=== PATIENT | female | born 1995 | race Caucasian/White ===

== ENCOUNTER 2017-05-22 12:25 | Emergency (ER) | payer MEDICAID, OTHER ==
[~2017-05-22 12:25] MED LIST: METH750T2 PO; PROC1TAB8 PO
[2017-05-22 12:26] VITALS: BP 130/68; PULSE 112; RESP 20; TEMP 99.1; O2SAT 97
[2017-05-22] MEDS ORDERED: PRENTAB75 (13:10)
--- NOTE | 2017-05-22 13:24 | PD ---
HPI Chief Complaint: Respiratory Symptoms Time Seen by Provider: 13:06 Travel History International Travel<30 days: No Contact w/Intl Traveler<30days: No Traveled to known affect area: No History of Present Illness HPI 21 year old female presents to the emergency department for evaluation of sore throat and cough since last Monday. Patient states the cough is dry and hacking in nature. She has sinus pressure and nasal congestion. Patient denies any major medical history. She is 22 weeks . This is her second . The first resulted in a live and her child is now 6 years old. He denies any abdominal pain, nausea, vomiting, vaginal discharge or bleeding, pelvic pain or cramping, fever, malaise or chills. She takes no daily medication except for her vitamin. She denies being around anybody sick. 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 Nontoxic-appearing. SKIN: Focused skin assessment warm/dry. HEAD: Normocephalic. Atraumatic.. EYES: No scleral icterus. No injection or drainage. ENT: Mucosa pink and moist. No erythema or exudates. No uvular edema. Airway patent. Nasal turbinates appear mildly hypertrophic without nasal blood, purulent drainage or septal hematoma. THROAT: Moderate bilateral tonsillar hypertrophy, No pharyngeal injection or exudates. Uvula is midline. Airway is patent. NECK: Supple, trachea midline. No JVD or lymphadenopathy. CARDIOVASCULAR: Regular rate and rhythm without murmurs, gallops, or rubs. RESPIRATORY: Breath sounds clear, equal bilaterally. No accessory muscle use. No wheezing or rhonchi noted. GASTROINTESTINAL: Abdomen soft, non-tender. MUSCULOSKELETAL: No cyanosis, or edema. BACK: Nontender without obvious deformity. No CVA tenderness. Data Data Last Documented VS Vital Signs Date Time Temp Pulse Resp B/P (MAP) Pulse Ox O2 Delivery O2 Flow Rate FiO2 05/22/17 15:32 110 18 128/79 (95) 99 05/22/17 13:08 Room Air 05/22/17 12:26 99.1 Orders Orders Group A Rapid Strep Screen (05/22/17 13:12) Heart Tones (05/22/17 13:12) Complete Blood Count With Diff (05/22/17 13:12) Basic Metabolic Panel (Bmp) (05/22/17 13:12) Iv Access Insert/Monitor (05/22/17 13:12) Heart Tones (05/22/17 13:27) Strep Culture (Group A) (05/22/17 13:40) Ed Discharge Order (05/22/17 15:04) Labs Laboratory Tests Test 05/22/17 13:40 White Blood Count 8.8 TH/MM3 Red Blood Count 3.72 MIL/MM3 Hemoglobin 12.0 GM/DL Hematocrit 35.0 % Mean Corpuscular Volume 94.1 FL Mean Corpuscular Hemoglobin 32.3 PG Mean Corpuscular Hemoglobin Concent 34.3 % Red Cell Distribution Width 12.8 % Platelet Count 239 TH/MM3 Mean Platelet Volume 10.4 FL Neutrophils (%) (Auto) 72.7 % Lymphocytes (%) (Auto) 17.0 % Monocytes (%) (Auto) 7.1 % Eosinophils (%) (Auto) 2.7 % Basophils (%) (Auto) 0.5 % Neutrophils # (Auto) 6.4 TH/MM3 Lymphocytes # (Auto) 1.5 TH/MM3 Monocytes # (Auto) 0.6 TH/MM3 Eosinophils # (Auto) 0.2 TH/MM3 Basophils # (Auto) 0.0 TH/MM3 CBC Comment DIFF FINAL Differential Comment Blood Urea Nitrogen 7 MG/DL Creatinine 0.54 MG/DL Random Glucose 71 MG/DL Calcium Level 8.7 MG/DL Sodium Level 137 MEQ/L Potassium Level 3.9 MEQ/L Chloride Level 106 MEQ/L Carbon Dioxide Level 26.1 MEQ/L Anion Gap 5 MEQ/L Estimat Glomerular Filtration Rate 141 ML/MIN MDM Medical Decision Making Medical Screen Exam Complete: Yes Emergency Medical Condition: Yes Differential Diagnosis Differential diagnoses include but not limited to pharyngitis, upper respiratory infection, bronchitis, congestion, postnasal drip Narrative Course 21-year-old female presents to emergency room for evaluation of upper respiratory symptoms. Patient is 22 weeks with her second . Patient states she has a sore throat and a nonproductive cough since last Monday. Patient denies any fever, chills, malaise, chest pain, shortness of breath, cramping, vaginal discharge, nausea. Appetite strep ordered and pending. Rapid strep negative. IV obtained and blood works in the lab to be seen in [facility] ordered and pending. Blood work shows no acute abnormality. heart tones show heart rate of 152 bpm. Patient went to be evaluated for possible pneumonia. Risks and benefits of chest x-ray were discussed. Patient preferred to defer the chest x-ray at this time. Patient states she'll return to the emergency Department with any worsening condition, fever, productive cough. Patient is discharged home at this time with instructions for supportive care strict instructions to return with any worsening condition. Patient is onboard with this plan of care and thankful for care. Diagnosis Primary Impression: Upper respiratory infection Qualified Codes: J06.9 - Acute upper respiratory infection, unspecified Referrals: Statement Processor Primary Care Physician Patient Instructions: General Instructions, Upper Respiratory Infection (ED) Additional Instructions: Please return to emergency department if your symptoms return or worsen. Follow up with your primary care provider and/or clinical cytogeneticist scientist/ob. Supportive care, get enough rest, stay hydrated, diet as tolerated. Disposition: 01 DISCHARGE HOME Condition: Stable Mague Renteria Kori PASCUAL May 22, 2017 13:24
[2017-05-22 14:00] LABS: AUTOMATED NEUTROPHIL # 6.4 TH/MM3 (1.8-7.7); BASOPHIL % 0.5 % (0.0-2.0); EOSINOPHIL # 0.2 TH/MM3 (0-0.4); EOSINOPHIL % 2.7 % (0.0-4.0); HEMO FLAGS DIFF FINAL; LYMPHOCYTE # 1.5 TH/MM3 (1.0-4.8); MEAN CELL VOLUME 94.1 FL (80.0-100.0); MEAN CORPUSCULAR HEMOGLOBIN 32.3 PG (27.0-34.0); MEAN CORPUSCULAR HGB CONC 34.3 % (32.0-36.0); MONO % 7.1 % (0.0-8.0); NEUT % 72.7 % (16.0-70.0); PLATELET COUNT 239 TH/MM3 (150-450); RED BLOOD COUNT 3.72 MIL/MM3 (4.00-5.30); RED CELL DISTRIBUTION WIDTH 12.8 % (11.6-17.2); WHITE BLOOD COUNT 8.8 TH/MM3 (4.0-11.0)
[2017-05-22 14:10] LABS: BICARBONATE 26.1 MEQ/L (21.0-32.0); POTASSIUM 3.9 MEQ/L (3.5-5.1)
[2017-05-22 15:32] VITALS: BP 128/79
== END 2017-05-22 15:42 | disposition home or self-care (01) ==
LOC: NEPC 12:25
DX: O99.512 Diseases of the respiratory system complicating pregnancy, second trimester (principal); J06.9 Acute upper respiratory infection, unspecified; Z3A.22 22 weeks gestation of pregnancy
CPT/HCPCS: 80048; 85025; 87081; 87880; 99283

== ENCOUNTER 2017-07-31 08:57 | Emergency (ER) | payer MEDICAID ==
[~2017-07-31 08:57] MED LIST changes: -METH750T2 PO; +PRENTAB75; -PROC1TAB8 PO
[2017-07-31 09:20] VITALS: BP 112/56; PULSE 79
[2017-07-31 09:21] VITALS: BP 123/67; PULSE 99
[2017-07-31 09:30] VITALS: RESP 16; TEMP 98.5
[2017-07-31 10:56] VITALS: BP 123/68; PULSE 107
[2017-07-31 10:57] VITALS: RESP 16
--- NOTE | 2017-07-31 11:03 | PD ---
HPI Chief Complaint Dizziness Date Seen: Jul 31, 2017 Travel History International Travel<30 Days: No Contact w/Intl Traveler<30Days: No Known Affected Area: No History of Present Illness HPI Ms. Byrd is a 21 y/o at 32/0 weeks gestation presenting with dizziness. She states that over the last 7 weeks she has had intermittent dizziness, blurred vision, ear ringing, and hot flashes after eating. While this does not occur each time she eats, it occurs almost every day after eating breakfast. These episodes last for approximately 45 min and resolve without intervention. Today she decided to come to the ED with her symptoms because she felt like she was going to "pass out." She has been told previously by her cultured marble products maker that she has mild hypotension and anemia. While she has started taking iron supplements, she has not increased her oral fluids for her hypotension stating she only drinks approximately "a glass or two" of water per day. She endorses good movement and denies any vaginal bleeding, vaginal discharge, loss of fluid, or dysuria. Otherwise she has no complaints and denies any fevers, chills, SOB, chest pain, NVD, ABD pain, or calf tenderness. 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 SKIN: Warm and dry. HEAD: Normocephalic and atraumatic. EYES: No scleral icterus. No injection or drainage. ENT: No nasal drainage noted. Mucous membranes pink. Airway patent. NECK: Supple, trachea midline. No JVD. CARDIOVASCULAR: Regular rate and rhythm without murmurs, gallops, or rubs. RESPIRATORY: Breath sounds equal bilaterally. No accessory muscle use. BREASTS: Bilateral exam showed no masses , no retractions, no nipple discharge. ABDOMEN/GI: Abdomen soft, non-tender, bowel sounds present, no rebound, no guarding Gravid to 32 weeks size FHT's: Category: 1 Baseline: 150s Reactive: Positive Variability: Moderate Decels: None EXTREMITIES: No cyanosis or edema. BACK: Nontender without obvious deformity. No CVA tenderness. NEUROLOGICAL: Awake and alert. Motor and sensory grossly within normal limits. Five out of 5 muscle strength in all muscle groups. Normal speech. Data Data Vital Signs Reviewed: Yes Orders Orders Vital Signs (Adult) .ON ADMISSION (07/31/17 10:18) ^ Labor Status (07/31/17 10:18) ^ Non Stress Test (07/31/17 10:18) ^ Hydration (07/31/17 10:18) Mrsa Screen (07/31/17 10:18) MDM Medical Record Reviewed: Yes Plan Ms. Byrd is a 21 y/o at 32/0 weeks gestation presenting with dizziness secondary to dehydration 1. 32 weeks gestation of -Continue routine OB care -Continue PVN -Category 1 FHT, reassuring 2. Dehydration -Patient able to tolerate oral fluids -Encouraged hydration -Orthostatic VS negative -BP: WNL thirty minutes apart -UA dipstick with trace protein and leukocyte esterase appearing concentrated; patient without UTI symptoms; consistent with dehydration -Patient's symptoms have resolved with oral fluids 3. Anemia -Patient to continue with iron supplement Discharge: Patient to be DC home with close follow up with her cultured marble products maker. SDW: Dr. Hadley Diagnosis Diagnosis: Primary Impression: 32 weeks gestation of Additional Impression: Dehydration Disposition: DISCHARGE HOME Condition: Stable Patient Instructions: General Instructions Allen Del Rio MD R2 Jul 31, 2017 11:03
== END 2017-07-31 13:16 | disposition home or self-care (01) ==
LOC: HOBED 08:57
DX: O26.893 Other specified pregnancy related conditions, third trimester (principal); E86.0 Dehydration; R42 Dizziness and giddiness; H53.8 Other visual disturbances; H93.19 Tinnitus, unspecified ear; Z3A.32 32 weeks gestation of pregnancy
CPT/HCPCS: 59025; 87641

== ENCOUNTER 2017-10-07 15:44 | Inpatient (IN) | payer MEDICAID ==
[2017-10-07] VITALS (9 sets, daily range): BP systolic 124–129; BP diastolic 75–86; PULSE 73–93; RESP 16–18; TEMP 98.9
[~2017-10-07] VITALS: Ht 172.7 cm; Wt 92.1 kg
[2017-10-07] MEDS ORDERED: LACTATED RINGER'S 1000 ML INJ 1,000 ML IV PRN (17:54)
[2017-10-07] MEDS: LACTATED RINGER'S 1000 ML INJ 1,000 ML IV SCH (17:54)
--- NOTE | 2017-10-07 17:54 | PD ---
HPI Chief Complaint Abnormal BPP Date Seen: Oct 07, 2017 Time Seen: 17:48 Travel History International Travel<30 Days: No Contact w/Intl Traveler<30Days: No Known Affected Area: No History of Present Illness HPI 22-year-old who is at 41 weeks and 5 days based on comes in from [place] due to an abnormal BPP. Patient was wanted to go home delivery when she was found to have anemia, and when she went over BPP was arranged score was 4 out of 10. She is group B strep negative and has had a previous uneventful spontaneous vaginal delivery. At this point she is declining admission for induction of labor as she desires a natural onset of labor. 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 SKIN: Warm and dry. HEAD: Normocephalic and atraumatic. EYES: No scleral icterus. No injection or drainage. ENT: No nasal drainage noted. Mucous membranes pink. Airway patent. NECK: Supple, trachea midline. No JVD. CARDIOVASCULAR: Regular rate and rhythm without murmurs, gallops, or rubs. RESPIRATORY: Breath sounds equal bilaterally. No accessory muscle use. BREASTS: Bilateral exam showed no masses , no retractions, no nipple discharge. ABDOMEN/GI: Abdomen soft, non-tender, bowel sounds present, no rebound, no guarding Gravid to [-40] weeks size Fundal Height: [-] GENITOURINARY: External Genitalia: intact and normal in appearance BUS glands: [-] Normal Cervix: [-] Posterior Dilatation: [-] 3 Effacement: [-] Station: [-] -3 Presentation: [-] Vertex Membranes: [intact or ruptured] intact Uterine Contractions: [-] None FHT's: Category: [-] 1 Baseline: [-] 140 Reactive: [-] Moderate Variability: [-] Decels: [-] Absent EXTREMITIES: No cyanosis or edema. BACK: Nontender without obvious deformity. No CVA tenderness. NEUROLOGICAL: Awake and alert. Motor and sensory grossly within normal limits. Five out of 5 muscle strength in all muscle groups. Normal speech. Data Data Vital Signs Reviewed: Yes Orders Orders Ob (2e) Additional Admit Info (10/07/17 17:46) Group B Strep: Negative MDM Medical Record Reviewed: Yes Plan 22-year-old at 40 weeks 5 days based on the best known gestational age with a 4 out of 10 on her biophysical profile. A lengthy discussion with her family and spouse regarding issues pertaining to postterm , abnormal bile physicals, and necessity for induction giving her score on the biophysical. They have elected to stay for induction of labor Diagnosis Diagnosis: Primary Impression: 41 weeks gestation of Additional Impression: H/O biophysical profile Anh Neville MD Oct 07, 2017 17:54
[2017-10-07] MEDS ORDERED: SODIUM CHLORID 0.9% 500 ML INJ 500 ML IV PRN (18:00)
[2017-10-07] MEDS ORDERED: CITRIC ACID-SODIUM CITRATE LIQ 30 ML UDC PO SCH (18:00)
[2017-10-07] MEDS ORDERED: LIDOCAINE HCL 1% 50 ML VIAL INFIL PRN (18:00)
[2017-10-07] MEDS ORDERED: DINOPROSTONE 10 MG VAG INSERT VAGINAL ONE (18:00)
[2017-10-07] MEDS ORDERED: MINERAL OIL 10 ML VIAL TOPICAL PRN (18:00)
[2017-10-07] MEDS ORDERED: LIDOCAINE HCL 1% 50 ML VIAL I-DERMAL PRN (18:00)
[2017-10-07] MEDS ORDERED: SODIUM CHLORIDE 0.9% FLUSH 10 ML FLUSH IV FLUSH PRN (18:00)
[2017-10-07] MEDS ORDERED: OXYTOCIN 30 UNITS-500ML PREMIX 500 ML IV ONE (18:00)
[2017-10-07] MEDS ORDERED: SODIUM CHLOR 0.9% 1000 ML INJ 1,000 ML IV PRN (18:14)
[2017-10-07 19:37] LABS: AUTOMATED NEUTROPHIL # 6.7 TH/MM3 (1.8-7.7); BASOPHIL % 0.3 % (0.0-2.0); EOSINOPHIL # 0.1 TH/MM3 (0-0.4); EOSINOPHIL % 1.1 % (0.0-4.0); HEMATOCRIT 33.4 % (35.0-46.0); HEMOGLOBIN 10.6 GM/DL (11.6-15.3); LYMPH % 17.5 % (9.0-44.0); LYMPHOCYTE # 1.6 TH/MM3 (1.0-4.8); MEAN CELL VOLUME 79.3 FL (80.0-100.0); MEAN CORPUSCULAR HEMOGLOBIN 25.2 PG (27.0-34.0); MEAN CORPUSCULAR HGB CONC 31.8 % (32.0-36.0); MEAN PLATELET VOLUME 10.1 FL (7.0-11.0); MONO % 5.8 % (0.0-8.0); MONOCYTE # 0.5 TH/MM3 (0-0.9); NEUT % 75.3 % (16.0-70.0); PLATELET COUNT 261 TH/MM3 (150-450); RED BLOOD COUNT 4.21 MIL/MM3 (4.00-5.30); RED CELL DISTRIBUTION WIDTH 16.9 % (11.6-17.2); WHITE BLOOD COUNT 8.9 TH/MM3 (4.0-11.0)
[2017-10-07] MEDS ORDERED: SODIUM CHLORIDE 0.9% FLUSH 10 ML FLUSH IV FLUSH SCH (21:00)
[2017-10-07] MEDS ORDERED: PREN1TAB30 (21:22)
[2017-10-07] MEDS ORDERED: UNIS25TA3 (21:22)
--- NOTE | 2017-10-07 22:50 | HHI.HP ---
History & Physical H&P HPI Chief Complaint Abnormal BPP Date Seen: Oct 07, 2017 Time Seen: 17:48 Travel History International Travel<30 Days: No Contact w/Intl Traveler<30Days: No Known Affected Area: No History of Present Illness HPI 22-year-old who is at 41 weeks and 5 days based on comes in from [place] due to an abnormal BPP. Patient was wanted to go home delivery when she was found to have anemia, and when she went over BPP was arranged score was 4 out of 10. She is group B strep negative and has had a previous uneventful spontaneous vaginal delivery. At this point she is declining admission for induction of labor as she desires a natural onset of labor. 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 SKIN: Warm and dry. HEAD: Normocephalic and atraumatic. EYES: No scleral icterus. No injection or drainage. ENT: No nasal drainage noted. Mucous membranes pink. Airway patent. NECK: Supple, trachea midline. No JVD. CARDIOVASCULAR: Regular rate and rhythm without murmurs, gallops, or rubs. RESPIRATORY: Breath sounds equal bilaterally. No accessory muscle use. BREASTS: Bilateral exam showed no masses , no retractions, no nipple discharge. ABDOMEN/GI: Abdomen soft, non-tender, bowel sounds present, no rebound, no guarding Gravid to [-40] weeks size Fundal Height: [-] GENITOURINARY: External Genitalia: intact and normal in appearance BUS glands: [-] Normal Cervix: [-] Posterior Dilatation: [-] 3 Effacement: [-] Station: [-] -3 Presentation: [-] Vertex Membranes: [intact or ruptured] intact Uterine Contractions: [-] None FHT's: Category: [-] 1 Baseline: [-] 140 Reactive: [-] Moderate Variability: [-] Decels: [-] Absent EXTREMITIES: No cyanosis or edema. BACK: Nontender without obvious deformity. No CVA tenderness. NEUROLOGICAL: Awake and alert. Motor and sensory grossly within normal limits. Five out of 5 muscle strength in all muscle groups. Normal speech. Data Data Vital Signs Reviewed: Yes Orders Orders Ob (2e) Additional Admit Info (10/07/17 17:46) Group B Strep: Negative MDM Medical Record Reviewed: Yes Plan 22-year-old at 40 weeks 5 days based on the best known gestational age with a 4 out of 10 on her biophysical profile. A lengthy discussion with her family and spouse regarding issues pertaining to postterm , abnormal bile physicals, and necessity for induction giving her score on the biophysical. They have elected to stay for induction of labor Diagnosis Diagnosis: Primary Impression: 41 weeks gestation of Additional Impression: H/O biophysical profile HPI above completed and dictated by Dr. Neville. Used for documentation with her permission. Update: 2240 S: Patient with large deceleration at approximately 2228. Patient currently asymptomatic. Prior to deceleration category 1 tracing. Cervidil removed and patient put in the L lateral position with oxygen and 1L LR bolus administered. O: GENERAL: Well-nourished, well-developed female lying in the L lateral position with non-rebreather facemask applied in NAD. SKIN: Warm and dry. No rash. EYES: No scleral icterus. No injection or drainage. PERRLA. EOMI. HENT: Normocephalic. Atraumatic. MMM. NECK: No visible JVD or lymphadenopathy. CARDIOVASCULAR: Warm and well perfused. RESPIRATORY: Normal respiratory effort. GASTROINTESTINAL: Gravid to 41 weeks. MUSCULOSKELETAL: Strength grossly WNL. BACK: Without obvious deformity. NEURO/PSYCH: Afocal. Awake, alert, and oriented x3. FHT's: Category: [-] 1 Baseline: [-] 120s Reactive: [-] Positive Variability: [-] Moderate Decels: [-] Absent, currently A/P: 1. IUP at 41 weeks -Continue routine antepartum care -Patient currently without complaint -Currently category 1 tracing, reassuring 2. Deceleration on FHT -Cervidil discontinued -Oxygen and 1L LR bolus administered with good response -Patient to start low dose Pitocin at 1-1-60 to augment labor DW: Allen Devries MD R2 Oct 07, 2017 22:50
[2017-10-07] MEDS ORDERED: OXYTOCIN 30 UNITS-500ML PREMIX 500 ML IV PRN (23:00)
[2017-10-08] VITALS (32 sets, daily range): BP systolic 102–177; BP diastolic 56–156; PULSE 66–247; RESP 13–20; TEMP 97.9–98.1
[2017-10-08] MEDS: LACTATED RINGER'S 1000 ML INJ 1,000 ML IV SCH (01:54)
[2017-10-08] MEDS ORDERED: ONDANSETRON HCL 4 MG/2 ML VIAL ONE (02:18)
[2017-10-08] MEDS ORDERED: ONDANSETRON HCL 4 MG/2 ML VIAL IV PUSH PRN (02:45)
[2017-10-08] MEDS ORDERED: fentaNYL 2MCG-BUPIV 0.125% INJ 100 ML ONE (03:34)
[2017-10-08] MEDS ORDERED: LIDOCAINE 1%/EPINEPHrine 1:100,000 SOLN 30 ML VIAL ONE (03:39)
[2017-10-08] MEDS ORDERED: NO SYSTEM NARCOTICS PRN (03:45)
[2017-10-08] MEDS ORDERED: DO NOT ADMINISTER ANTICOAGULANTS PRN (03:45)
[2017-10-08] MEDS ORDERED: fentaNYL 2MCG-BUPIV 0.125% 100 ML EPIDURAL PRN (03:45)
[2017-10-08] MEDS ORDERED: ePHEDrine/NS 25 MG/5 ML SYRINGE IV PUSH PRN (04:30)
[2017-10-08] MEDS ORDERED: FAMOTIDINE 20 MG TAB PO SCH (05:00)
--- NOTE | 2017-10-08 06:07 | HHI.PR ---
GANG [facility]ER Note Note AROM performed for Category 2 tracing, moderate variability Baseline 140 with late fhr decelerations on occasional contractions moderate meconium noted Anh Neville MD Oct 08, 2017 06:07
--- NOTE | 2017-10-08 08:10 | PD.OB.DELI ---
Weeks gestation: 41 Anesthesia: Epidural Episiotomy: None Vaginal Delivery: Normal Presentation: Occiput anterior Nuchal Cord: None Delayed cord clamping (45 sec): Yes : Female Delivery date: Oct 08, 2017 Delivery time: 07:52 One Minute : 9 Five Minute : 9 Weight: 3820 Placenta: Spontaneous delivery Laceration: 1 deg Repair: Chromic running Estimated blood loss: <200cc Additional Information Ms. Byrd is a 22 y/o G2 now P2 after an uncomplicated . Baby was delivered with thick terminal meconium. APGARs 9/9. Placenta delivered intact without abnormality. Mother and baby resting comfortably in room without complaints. SDW: Allen Devries MD R2 Oct 08, 2017 08:10
[2017-10-08] MEDS ORDERED: ONDANSETRON ODT 4 MG TAB PO PRN (08:15)
[2017-10-08] MEDS ORDERED: OXYTOCIN 30 UNITS-500ML PREMIX 500 ML IV SCH (08:15)
[2017-10-08] MEDS ORDERED: ZOLPIDEM TARTRATE 5 MG TAB PO PRN (08:15)
[2017-10-08] MEDS ORDERED: SODIUM CHLORIDE 0.9% FLUSH 10 ML FLUSH IV FLUSH PRN (08:15)
[2017-10-08] MEDS ORDERED: ACETAMINOPHEN 325 MG TAB PO PRN (08:15)
[2017-10-08] MEDS ORDERED: DOCUSATE SODIUM 50 MG/SENNA 8.6 MG TAB PO PRN (08:15)
[2017-10-08] MEDS ORDERED: WITCH HAZEL 50%/GLYCERIN 12.5% 40 PAD JAR TOPICAL PRN (08:15)
[2017-10-08] MEDS ORDERED: ALUMINUM/MAGNESIUM/SIMETH 30 ML CUP PO PRN (08:15)
[2017-10-08] MEDS ORDERED: BENZOCAINE 20% TOPICAL SPRAY 60 ML CAN TOPICAL PRN (08:15)
[2017-10-08] MEDS: FAMOTIDINE 20 MG TAB PO SCH ×2 (11:22→20:35)
[2017-10-08] MEDS ORDERED: DIPHTH/TETANUS/ACEL PERTUSSIS (BOOSTER) 0.5 ML VIAL/PFS IM ONE (16:00)
[2017-10-08] MEDS ORDERED: MEASLES, MUMPS, RUBELLA VACCINE 0.5 ML VIAL SQ ONE (16:00)
[2017-10-08] MEDS: IBUPROFEN 800 MG TAB PO PRN (17:48)
[2017-10-09] MEDS: IBUPROFEN 800 MG TAB PO PRN ×2 (03:02→14:59)
[2017-10-09 08:00] VITALS: BP 128/77; PULSE 79
[2017-10-09 08:29] VITALS: RESP 20; O2SAT 100
[2017-10-09 08:30] VITALS: TEMP 97.6
--- NOTE | 2017-10-09 08:37 | HHI.OB ---
Subjective Post Day: 1 Remarks Patient seen and examined this morning. AFVSS overnight. day #1. Patient states her pain is well controlled. Decreased lochia. Denies dysuria. No breast tenderness. She is feeding the baby via breast without reported issues. Appetite good. No nausea or vomiting. Ambulating well. Denies fevers, calf pain, shortness of breath, or cough. She otherwise has no other complaints or concerns this morning. Objective Vitals/I&O Vital Signs Date Time Temp Pulse Resp B/P (MAP) Pulse Ox O2 Delivery O2 Flow Rate FiO2 10/08/17 20:35 97.9 89 18 115/72 (86) 10/08/17 10:15 98.1 106 13 122/75 (91) 10/08/17 09:00 20 10/08/17 08:42 91 18 113/97 (102) Objective Remarks GENERAL: Well-nourished, well-developed patient. CARDIOVASCULAR: Regular rate and rhythm without murmurs, gallops, or rubs. RESPIRATORY: Breath sounds equal bilaterally. No accessory muscle use. ABDOMEN/GI: Abdomen soft, non-tender. Fundus: Firm, non-tender at umbilicus. GENITOURINARY: Light to moderate bleeding. EXTREMITIES: No cyanosis or edema, non-tender, without signs of DVT. Medications and IVs Current Medications Medications (Trade) Dose Ordered Sig/Cavlin Route Start Time Stop Time Status Last Admin Lactated Ringer's 1,000 ml @ 125 mls/hr Q8H IV 10/07/17 17:54 10/08/17 01:54 Lactated Ringer's 1,000 ml @ 3,000 mls/hr Q20M PRN IV 10/07/17 17:54 Sodium Chloride 500 ml @ 1,000 mls/hr ONCE PRN IV 10/07/17 18:00 Sodium Chloride 1,000 ml @ 100 mls/hr Q10H PRN IV 10/07/17 18:14 (Xylocaine 1% Inj (50 ml)) 0.1 ml UNSCH X1 PRN I-DERMAL 10/07/17 18:00 10/10/17 17:59 (Bicitra Liq) 30 ml BLACKJACK DEALER PO 10/07/17 18:00 10/11/17 17:59 10/08/17 01:04 (fentaNYL INJ) 50 mcg Q1H PRN IV PUSH 10/07/17 18:00 10/08/17 02:25 (fentaNYL INJ) 100 mcg Q1H PRN IV PUSH 10/07/17 18:00 (Xylocaine 1% Inj (50 ml)) 10 ml UNSCH X1 PRN INFIL 10/07/17 18:00 10/09/17 17:59 (Muri-Lube Oil) 10 ml UNSCH PRN TOPICAL 10/07/17 18:00 Oxytocin 500 ml @ 0 mls/hr TITRATE PRN IV 10/07/17 23:00 (Zofran Inj) 4 mg Q4H PRN IV PUSH 10/08/17 02:45 Fentanyl/ Bupivacaine HCl 100 ml @ 12 mls/hr TITRATE PRN EPIDURAL 10/08/17 03:45 (NS Flush) 2 ml BID IV FLUSH 10/08/17 09:00 (NS Flush) 2 ml UNSCH PRN IV FLUSH 10/08/17 08:15 (Tylenol) 650 mg Q4H PRN PO 10/08/17 08:15 (Motrin) 800 mg Q8H PRN PO 10/08/17 08:15 10/09/17 03:02 (Americaine 20% Top Spr) 1 spray Q4H PRN TOPICAL 10/08/17 08:15 (Tucks Pads) 1 applic QID PRN TOPICAL 10/08/17 08:15 (Paige-Colace) 2 tab Q12H PRN PO 10/08/17 08:15 (Ambien) 5 mg HS PRN PO 10/08/17 08:15 (Mag-Al Plus Susp Liq) 15 ml Q8H PRN PO 10/08/17 08:15 (Zofran Odt) 4 mg Q6H PRN PO 10/08/17 08:15 (Pepcid) 20 mg BID PO 10/08/17 09:45 10/08/17 20:35 Assessment/Plan Problem List: (1) care following vaginal delivery ICD Codes: Z39.2 - Encounter for routine follow-up Assessment and Plan 22 year old now PPD#1. 1. Care - AFVSS - Encouraged OOB, as tolerated - Motrin prn pain - Advised pelvic rest x 6 weeks - - Contraception: Discussed with patient this AM, patient states father will be getting a vasectomy - Will f/u with OB provider in [address] Molina Discharge Planning Anticipate discharge today or tomorrow pending stable clinical course David Sanches MD R2 Oct 09, 2017 08:36
[2017-10-09 20:01] VITALS: BP 115/66; PULSE 91; RESP 18; TEMP 97.9
[2017-10-09] MEDS: SODIUM CHLORIDE 0.9% FLUSH 10 ML FLUSH IV FLUSH SCH (21:00)
[2017-10-09] MEDS: FAMOTIDINE 20 MG TAB PO SCH (21:01)
[2017-10-10 07:50] VITALS: BP 140/85; PULSE 90; RESP 20; TEMP 98.1
[2017-10-10 07:55] VITALS: BP 127/79; PULSE 83
--- NOTE | 2017-10-10 08:07 | HHI.OB ---
Subjective Post Day: 2 Remarks Patient seen and examined this morning. AFVSS overnight. day #2. Patient states her pain is minimal. Decreased lochia. Denies dysuria. No breast tenderness. She is feeding the baby via breast without issues. Appetite good. No nausea or vomiting. Ambulating well without issues. Denies fevers or chills, calf pain, shortness of breath, or cough. She otherwise has no other complaints or concerns this morning. Objective Vitals/I&O Vital Signs Date Time Temp Pulse Resp B/P (MAP) Pulse Ox O2 Delivery O2 Flow Rate FiO2 10/10/17 07:55 83 127/79 (95) 10/10/17 07:50 98.1 90 20 140/85 (103) 10/09/17 20:01 97.9 91 18 115/66 (82) 10/09/17 08:30 97.6 10/09/17 08:29 20 100 Objective Remarks GENERAL: Well-nourished, well-developed patient. CARDIOVASCULAR: Regular rate and rhythm without murmurs, gallops, or rubs. RESPIRATORY: Breath sounds equal bilaterally. No accessory muscle use. ABDOMEN/GI: Abdomen soft, non-tender. Fundus: Firm, non-tender at umbilicus. GENITOURINARY: Light to moderate bleeding. EXTREMITIES: No cyanosis or edema, non-tender, without signs of DVT. Medications and IVs Current Medications Medications (Trade) Dose Ordered Sig/Calvin Route Start Time Stop Time Status Last Admin Lactated Ringer's 1,000 ml @ 125 mls/hr Q8H IV 10/07/17 17:54 10/08/17 01:54 Lactated Ringer's 1,000 ml @ 3,000 mls/hr Q20M PRN IV 10/07/17 17:54 Sodium Chloride 500 ml @ 1,000 mls/hr ONCE PRN IV 10/07/17 18:00 Sodium Chloride 1,000 ml @ 100 mls/hr Q10H PRN IV 10/07/17 18:14 (Xylocaine 1% Inj (50 ml)) 0.1 ml UNSCH X1 PRN I-DERMAL 10/07/17 18:00 10/10/17 17:59 (Bicitra Liq) 30 ml [employer] PO 10/07/17 18:00 10/11/17 17:59 10/08/17 01:04 (fentaNYL INJ) 50 mcg Q1H PRN IV PUSH 10/07/17 18:00 10/08/17 02:25 (fentaNYL INJ) 100 mcg Q1H PRN IV PUSH 10/07/17 18:00 (Muri-Lube Oil) 10 ml UNSCH PRN TOPICAL 10/07/17 18:00 Oxytocin 500 ml @ 0 mls/hr TITRATE PRN IV 10/07/17 23:00 (Zofran Inj) 4 mg Q4H PRN IV PUSH 10/08/17 02:45 Fentanyl/ Bupivacaine HCl 100 ml @ 12 mls/hr TITRATE PRN EPIDURAL 10/08/17 03:45 (NS Flush) 2 ml BID IV FLUSH 10/08/17 09:00 (NS Flush) 2 ml UNSCH PRN IV FLUSH 10/08/17 08:15 (Tylenol) 650 mg Q4H PRN PO 10/08/17 08:15 (Motrin) 800 mg Q8H PRN PO 10/08/17 08:15 10/09/17 14:59 (Americaine 20% Top Spr) 1 spray Q4H PRN TOPICAL 10/08/17 08:15 10/09/17 21:01 (Tucks Pads) 1 applic QID PRN TOPICAL 10/08/17 08:15 10/09/17 21:01 (Paige-Colace) 2 tab Q12H PRN PO 10/08/17 08:15 (Ambien) 5 mg HS PRN PO 10/08/17 08:15 (Mag-Al Plus Susp Liq) 15 ml Q8H PRN PO 10/08/17 08:15 (Zofran Odt) 4 mg Q6H PRN PO 10/08/17 08:15 (Pepcid) 20 mg BID PO 10/08/17 09:45 10/09/17 21:01 Assessment/Plan Problem List: (1) care following vaginal delivery ICD Codes: Z39.2 - Encounter for routine follow-up Assessment and Plan 22 year old now PPD#2. 1. Care - AFVSS - Encouraged OOB, as tolerated - Motrin prn pain - Advised pelvic rest x 6 weeks - - Contraception: Discussed with patient this AM, patient states father will be getting a vasectomy - Instructed patient to f/u with OB provider in 6 weeks w OB Hospitalist Discharge Planning Stable for discharge home today David Sanches MD R2 October 10, 2017 08:07
--- NOTE | 2017-10-10 08:15 | HHI.DCPOC ---
Discharge Care Plan Diagnosis: (1) care following vaginal delivery Report Symptoms to Your Doctor -Temperature above 100.5 degrees -Redness, of incision or excessive or foul smelling drainage -Unusual pain or calf pain -Increased vaginal bleeding -Painful or difficulty urinating -Feelings of extreme sadness or anxiety after 2 weeks Goals to Promote Your Health * To maintain your health at the optimal level, follow up with your primary OB provider within 6 weeks after hospital discharge. Directions to Meet Your Goals Take your medications as prescribed Follow your dietary instruction Follow activity as directed Ensure plenty of rest for recovery Drink fluids for hydration Keep your appointments as scheduled Take your immunizations and boosters as scheduled If your symptoms worsen call your PCP, if no PCP go to Urgent Care Center or Emergency Room Smoking is Dangerous to Your Health. Avoid second hand smoke Call the 24-hour crisis hotline for domestic abuse at David Sanches MD R2 October 10, 2017 08:15
[2017-10-10] MEDS ORDERED: IBUP1TAB7 PO (08:16)
[2017-10-10] MEDS: SODIUM CHLORIDE 0.9% FLUSH 10 ML FLUSH IV FLUSH SCH (09:00)
[2017-10-10] MEDS: FAMOTIDINE 20 MG TAB PO SCH (09:00)
== END 2017-10-10 14:15 | disposition home or self-care (01) | DRG 775 ==
LOC: HOBED 15:44 → H2EB 17:58 → H1EA 10-08 10:11
PROVIDERS: ADMIT Obstetrics & Gynecology Obstetrics; ATTEND Obstetrics & Gynecology Obstetrics
PROC: 3E0P7VZ Introduction of Hormone into Female Reproductive, Via Natural or Artificial Opening (ICD-10-PCS; 2017-10-07)
PROC: 10E0XZZ Delivery of Products of Conception, External Approach (ICD-10-PCS; principal; 2017-10-08)
PROC: 10907ZC Drainage of Amniotic Fluid, Therapeutic from Products of Conception, Via Natural or Artificial Opening (ICD-10-PCS; 2017-10-08)
PROC: 3E0S3BZ Introduction of Anesthetic Agent into Epidural Space, Percutaneous Approach (ICD-10-PCS; 2017-10-08)
PROC: 0HQ9XZZ Repair Perineum Skin, External Approach (ICD-10-PCS; 2017-10-08)
DX: O76 Abnormality in fetal heart rate and rhythm complicating labor and delivery (principal); O70.0 First degree perineal laceration during delivery; Z37.0 Single live birth; Z3A.41 41 weeks gestation of pregnancy
CPT/HCPCS: 59025; 80307; 85025; 86900; 86901; J2405; J3010; J7120